=== PATIENT | male | born 1945 | race Caucasian/White ===

== ENCOUNTER 2022-06-20 18:14 | Observation (INO) | payer MEDICARE, SELFPAY ==
[2022-06-20] VITALS (76 sets, daily range): BP systolic 69–119; BP diastolic 49–73; PULSE 42–164; RESP 8–26; TEMP 36.1–36.3; O2SAT 94–100; BMI 26.3
--- NOTE | 2022-06-20 18:31 | ECG_ITS ---
Measurements Intervals [place] Rate: 167 P: [place]: 0 QRS: -17 QRSD: 82 T: 42 QT: 271 QTc: 452 Interpretive Statements SUPRAVENTRICULAR TACHYCARDIA INFERIOR MYOCARDIAL INFARCTION , PROBABLY OLD [40+ ms Q WAVE AND/OR ST/T ABNORMALITY IN II/aVF] ABNORMAL ECG Electronically Signed On 06-21-2022 10:01:23 CDT by Wisam Mahajan M.D.
--- NOTE | 2022-06-20 18:31 | ECG_ITS ---
Measurements Intervals [place] Rate: 78 P: 67 [place]: 188 QRS: -7 QRSD: 96 T: 30 QT: 380 QTc: 435 Interpretive Statements SINUS RHYTHM WITH OCCASIONAL SUPRAVENTRICULAR PREMATURE COMPLEXES CANNOT RULE OUT INFERIOR INFARCTION, AGE UNDETERMINED ABNORMAL ECG Electronically Signed On 06-21-2022 10:02:15 CDT by Wisam Mahajan M.D.
--- NOTE | 2022-06-20 18:38 | ED.GENADULT ---
HPI - General Adult General Chief complaint: Arrhythmia/Palpitations Stated complaint: palpations, dizziness Time Seen by Provider: 06/20/22 18:22 History of Present Illness HPI narrative: 76-year-old male with history of paroxysmal atrial fibrillation presents to the emergency department for evaluation of generalized weakness and cardiac arrhythmias that have been going on for today. Upon arrival to the emergency department patient was found to be in SVT and then had a prolonged sinus pause. In the room patient had a heart rate of 168 was able to cough and Valsalva himself back into normal sinus rhythm when patient goes back into normal sinus rhythm he is in a heart rate of 60 to 70s. Patient denies any complaints at this time. Patient does take amlodipine, metoprolol for his A. fib. states that has been approximately 5 years since he has had any cardiac issues. Patient states he has never had a heart attack and has no prior history of congestive heart failure. Patient states he has had decreased p.o. intake today. Patient follows up with Dr. Kapoor at [facility] Data Allergies Allergy/AdvReac Type Severity Reaction Status Date / Time No Known Allergies Allergy Unknown Unverified 03/02/17 11:52 Review of Systems Review of Systems: CONSTITUTIONAL: Denies fever, chills, or sweats. EYES: Denies visual changes, redness, or discharge. ENT: Denies rhinorrhea, congestion, sore throat, or otalgia. CARDIOVASCULAR: See HPI RESPIRATORY: Denies cough or dyspnea. GASTROINTESTINAL: Denies abdominal pain, nausea, vomiting, or diarrhea. GENITOURINARY: Denies dysuria or hematuria. SKIN: Denies rash or itching. MUSCULOSKELETAL: Denies back pain, joint pain, or myalgia. NEUROLOGIC: Denies headache, numbness, or weakness. PSYCHIATRIC: Denies anxiety or depression. Exam Narrative: APPEARANCE: Well appearing, no pain, no distress, well-nourished. HEAD: normocephalic, atraumatic. EYES: PERRLA/EOMI, conjunctivae clear. NOSE: Normal no drainage EARS:TMS clear with good light reflex. THROAT: Pharynx clear, no exudate. NECK: Supple. No adenopathy, no masses. RESPIRATORY: Airway patent, respirations nonlabored. Clear to auscultation bilaterally, no rales, rhonchi, wheezing. CARDIOVASCULAR: Intermittent SVT ABDOMINAL: Soft, nontender, nondistended, normal bowel sounds MUSCULOSKELETAL: Moves all extremities. Strength/ROM intact, No edema, No calf tenderness. NEURO: Alert. Cranial nerves II through XII intact. Grossly intact SKIN: Warm, dry. Normal Color PSYCHIATRIC: Normal affect/mood. Course Course Emergency Course: Patient was having intermittent SVT that he was able to cough and Valsalva himself on. Patient was mildly hypotensive. Patient's SVT did improve with rehydration. Case was discussed with cardiology and they advised giving him his p.o. metoprolol dose. Patient took his metoprolol in the morning so additional p.o. metoprolol was not given. Case was discussed with the hospitalist and patient was accepted for admission. Vital Signs Vital signs: Vital Signs Temperature 97.0 F L 06/20/22 18:20 Pulse Rate 164 H 06/20/22 18:20 Respiratory Rate 18 06/20/22 18:20 Blood Pressure 96/72 L 06/20/22 18:20 Pulse Oximetry 95 06/20/22 18:20 Oxygen Delivery Room Air 06/20/22 18:20 Temperature 97.0 F L 06/20/22 18:20 Pulse Rate 51 L 06/20/22 22:26 Respiratory Rate 13 06/20/22 22:26 Blood Pressure 99/64 L 06/20/22 22:26 Pulse Oximetry 100 06/20/22 22:26 Oxygen Delivery Room Air 06/20/22 18:20 Medical Decision Making Vital Signs Vital Signs: Vital Signs Temperature 97.0 F L 06/20/22 18:20 Pulse Rate 164 H 06/20/22 18:20 Respiratory Rate 18 06/20/22 18:20 Blood Pressure 96/72 L 06/20/22 18:20 Pulse Oximetry 95 06/20/22 18:20 Oxygen Delivery Room Air 06/20/22 18:20 Temperature 97.0 F L 06/20/22 18:20 Pulse Rate 51 L 06/20/22 22:26 Respiratory Rate 13 06/20/22 22:
[2022-06-20] MEDS: SODIUM CHLORIDE 0.9% IV 1,000 ML 999 ML ×2 (18:40→19:09)
[2022-06-20 18:56] LABS: Basophils Absolute Auto 0.1 K/mm3 (0.0-0.1); Basophils Percent Auto 0.9 % (0.2-1.2); Eosinophils Absolute Auto 0.3 K/mm3 (0-0.3); Hematocrit 52.7 % (42.0-52.0); Hemoglobin 17.8 g/dL (14.0-18.0); Immature Granulocyte Absolute 0.02 K/mm3 (0.00-0.031); Immature Granulocyte Percent A 0.2 % (0-0.5); Lymphocytes Absolute Auto 2.15 K/mm3 (0.9-3.2); Lymphocytes Percent Auto 24.2 % (18.3-44.2); Mean Corpuscular HGB Conc 33.8 g/dl (32-36); Mean Corpuscular Hemoglobin 32.3 pg (26-34); Mean Corpuscular Volume 95.6 fl (80-100); Mean Platelet Volume 11.7 fl (7.4-10.4); Monocytes Absolute Auto 0.9 K/mm3 (0.1-0.6); Monocytes Percent Auto 10.5 % (2.6-8.5); Neutrophils Absolute Auto 5.4 K/mm3 (1.3-6.7); Neutrophils Percent Auto 61.2 % (45.5-73.1); Platelet Count Result 205 k/mm3 (150-375); Red Blood Count 5.51 M/mm3 (4.6-6.20); Red Cell Distribution Width 12.7 % (11.5-14.5); White Blood Count 8.9 K/mm3 (4.5-10.0)
[2022-06-20 19:09] LABS: Alanine Aminotransferase 14 U/L (6-50); Albumin Level 3.5 g/dL (3.5-5.1); Alkaline Phosphatase 61 U/L (38-126); Anion Gap 10 mmol/L (8-16); Aspartate Amino Transferase 17 U/L (17-59); Bilirubin,Total 0.5 mg/dL (0.2-1.3); Blood Urea Nitrogen 17 mg/dL (9-20); Carbon Dioxide 23 mmol/L (22-30); Chloride 106 mmol/L (98-107); Estimated CRCL calculation 60 ml/min; Estimated Glomerular Filt Rate > 60; Glucose 174 mg/dL (65-110); Magnesium 1.8 mg/dL (1.6-2.3); Potassium 3.4 mmol/L (3.4-5.0); Sodium 139 mmol/L (137-145)
--- NOTE | 2022-06-20 19:50 | PM.IMHP ---
H&P: HPI History of Present Illness Date/Time: 06/20/22 19:50 Chief Complaint: Lightheadedness Narrative: This is a 76-year-old male with past medical history significant for atrial fibrillation, ischemic cardiomyopathy. Patient presents to the emergency room after having an episode of lightheadedness while sitting at home patient was brought to the emergency room he was found to have a heart rate in the 160's which was determined to be AFib with RVR patient came out of bed spontaneously, It was noted that with Valsalva maneuver. His heart rate has been in the 50s after this episode. Patient has been in his usual state of health up until this point he follows up with a clinical business manager at [facility]. has had cardioversion in the past and according to he has been well controlled. Patient denies any fevers, rigors, chills, nausea, vomiting, abdominal pain, chest pain, PND, orthopnea, syncope, leg swelling, ankle swelling. patient is been admitted for further evaluation management and treatment. Preliminary workup has been essentially nonrevealing for the most part. Review of Systems Review of Systems: Lightheadedness Constitutional: Constitutional: Denies chills, Denies excessive sweating, Denies fever(s), Denies malaise, Denies night sweats, Denies poor appetite, Denies weakness and Denies weight loss Eyes: Eyes: Denies change in vision ENT: Denies dysphagia, Denies vertigo, Denies dizziness and Denies odynophagia Cardiovascular: Cardiovascular: Denies chest pain, Denies syncope, Denies pedal edema, Denies irregular heart rhythm, Reports lightheadedness, Denies radiating jaw, neck or arm pain, Denies palpitations and Denies dyspnea on exertion Respiratory: Respiratory: Denies chest congestion, Denies cough, Denies excessive phlegm production, Denies pain on inspiration, Denies dyspnea and Denies dyspnea on exertion Gastrointestinal: Gastrointestinal: Denies abdominal pain, Denies dyspepsia, Denies heartburn, Denies nausea and Denies vomiting Genitourinary: Genitourinary: Denies dysuria Musculoskeletal: Musculoskeletal: Denies arthralgias and Denies joint swelling Integumentary/Breasts: Skin/Breast: Denies rash Neurologic: Denies vertigo, Denies dizziness, Denies focal weakness and Denies Sensory deficit (Neuro) Psychiatric: Psychiatric: Reports no additional psychiatric complaints and Reports as per HPI Endocrine: Endocrine: Denies cold intolerance, Denies flushing, Denies heat intolerance, Denies polyphagia, Denies polydipsia and Denies palpitations Hematologic/Lymphatic: Hematologic/Lymphatic: Reports no additional hematologic/lymphatic complaints and Reports as per HPI [facility] Family History Family History Sibling Deaf Mother Hypothyroidism Sibling Hypothyroidism Father S/P CABG (coronary artery bypass graft) Father CAD (coronary artery disease) Social History Social History Smoking packs per day: 0.5 Smoking cigarettes per day: 10.0 Years smoked: 8 Smoking pack-years: 4.00 Smoking status: Former smoker Tobacco type: cigarettes Second hand tobacco smoke exposure: No Alcohol intake: former Substance use: never Substance use type: does not use Spiritual care concerns: No Meds Home Medications and Allergies Home Medications Medication Instructions Recorded Confirmed Type apixaban 5 mg tablet (Eliquis) 5 mg PO BID 06/20/22 06/21/22 History aspirin 81 mg tablet,delayed 81 mg PO DAILY 06/20/22 06/21/22 History release (Adult Low Dose Aspirin) furosemide 20 mg tablet 20 mg PO BID 06/20/22 06/21/22 History metoprolol succinate 25 mg 12.5 mg PO DAILY 06/20/22 06/21/22 History tablet,extended release 24 hr sacubitril 24 mg-valsartan 26 mg 1 tablet PO BID 06/20/22 06/21/22 History tablet (Entresto) meloxicam 15 mg tablet 7.5 mg PO BID 06/21/22 06/21/22 History multivit,Ca,min-iron 8 mg-folic 1 table
[2022-06-20] MEDS: SODIUM CHLORIDE 0.9% IV 1,000 ML 250 ML IV CONT (19:58)
[2022-06-20 21:17] LABS: SARS-CoV-2 RNA PCR Negative
--- NOTE | 2022-06-20 23:28 | ADMGEN ---
This patient, Noé Duke, was admitted to IMU Room 211-01 on 06/20/22 at 2321. Patient/family oriented to hospital policies and general routines including ID bracelet, bed and alarms, visiting hours, pain management, procedures, bathroom and other care routines, personal items, smoking policy, room service/diet, and visiting hours. Information on how to activate the Rapid Response Team has been discussed. Patient/Family are encouraged to report perceived risks to care and to ask questions if they do not understand what they are told or what they should do.
[2022-06-21] VITALS (9 sets, daily range): BP systolic 109–117; BP diastolic 40–64; PULSE 40–54; RESP 16–20; TEMP 36.6–36.7; O2SAT 96–100
--- NOTE | 2022-06-21 08:28 | PM.IMPN ---
Progress Note: A&P Assessment and Plan (1) Paroxysmal SVT (supraventricular tachycardia): Code(s): I47.1 - Supraventricular tachycardia Status: Acute Assessment and Plan: admit to telemetry unit restarted medications patient has on cardiology is at [facility] continue to monitor Plan # supraventricular tachycardia resolved with Valsalva maneuver. Started metoprolol oral. Cardiology consulted. Currently bradycardic. Continue to monitor on telemetry. EKG with no ischemic changes. He cysts normal. Mildly hypokalemic. Magnesium is okay. No signs of infection. # atrial fibrillation on metoprolol at home along with apixaban follows with Dr. Ramirez at [place] # history of cardioversion for atrial fibrillation in the past # ischemic cardiomyopathy well compensated on Entresto and beta-sharron and aspirin # DVT prophylaxis on apixaban # code status full code Subjective Date/time seen: 06/21/22 08:28 Interval history: HPI:This is a 76-year-old male with past medical history significant for atrial fibrillation, ischemic cardiomyopathy.? Patient presents to the emergency room after having an episode of lightheadedness while sitting at home patient was brought to the emergency room he was found to have a heart rate in the 160's? which was determined to be AFib with RVR patient came out of bed spontaneously, ? It was noted that with Valsalva maneuver.? His heart? rate has been in the 50s after this episode.? Patient has been in his usual state of health up until this point he follows up with a barrel builder at [facility]. has had cardioversion in the past and according to he has been well controlled.? Patient denies any fevers, rigors, chills, nausea, vomiting, abdominal pain, chest pain, PND, orthopnea, syncope, leg swelling, ankle swelling. patient is been admitted for further evaluation management and treatment.? Preliminary workup has been essentially nonrevealing for the most part. 06/21/2022 presented with lightheadedness with AFib with RVR. Resolved with Valsalva maneuver in the ER. History of cardioversion in the past. EKG last evening with sinus rhythm. Admitted and monitored telemetry currently bradycardic. Review of Systems Review of Systems: All systems reviewed & are unremarkable except as noted in HPI and below Exam Narrative: APPEARANCE: Well appearing, no pain, no distress, well-nourished. HEAD: normocephalic, atraumatic. EYES: PERRLA/EOMI, conjunctivae clear. NOSE: Normal no drainage EARS:TMS clear with good light reflex. THROAT: Pharynx clear, no exudate. NECK: Supple. No adenopathy, no masses. RESPIRATORY: Airway patent, respirations nonlabored. Clear to auscultation bilaterally, no rales, rhonchi, wheezing. CARDIOVASCULAR: Intermittent SVT ABDOMINAL: Soft, nontender, nondistended, normal bowel sounds MUSCULOSKELETAL: Moves all extremities. Strength/ROM intact, No edema, No calf tenderness. NEURO: Alert. Cranial nerves II through XII intact.? Grossly intact SKIN: Warm, dry. Normal Color PSYCHIATRIC: Normal affect/mood. Objective Data Vital Signs Vital Signs: Vital Signs - 24 hr 06/20/22 18:20 06/20/22 20:40 06/20/22 18:51 Temperature 97.0 F L Pulse Rate 164 H 51 L 74 Respiratory Rate 18 16 Blood Pressure 96/72 L 99/63 L Pulse Oximetry 95 99 Oxygen Delivery Room Air 06/20/22 18:56 06/20/22 19:00 06/20/22 19:01 Temperature Pulse Rate 85 76 75 Respiratory Rate 13 16 16 Blood Pressure 95/58 L 95/59 L Pulse Oximetry 100 99 Oxygen Delivery 06/20/22 19:06 06/20/22 19:11 06/20/22 19:15 Temperature Pulse Rate 75 65 75 Respiratory Rate 14 14 14 Blood Pressure 95/56 L 102/64 Pulse Oximetry 100 99 98 Oxygen Delivery 06/20/22 19:16 06/20/22 19:21 06/20/22 19:23 Temperature Pulse Rate 74 143 H 82 Respiratory Rate 12 18 Blood Pressure 93/55 L 69/49 L 87/52 L Pulse Oximetry 99 98 98 Oxygen Delivery 06/20/22
[2022-06-21 09:31] LABS: Appearance Urine Slightly Cloudy (Clear); Bilirubin Urine 1+ (Negative); Blood Urine Negative (Negative); Color Urine Yellow (Yellow); Glucose Urine UA Negative (Negative); Ketones Urine Trace mg/dL (Negative); Leukocyte Esterase Ur Negative LEU/UL (Negative); Nitrate Urine Negative (Negative); Protein Urine Negative (Negative); Specific Grav Ur >= 1.030 (1.001-1.035); Urobilinogen Urine 0.2 mg/dL (<2.0); pH Urine 5.5 (5.0-9.0)
[2022-06-21] MEDS: SACUBITRIL/VALSARTAN 24-26 MG TABLET 1 TAB PO (09:37)
[2022-06-21] MEDS: APIXABAN 5 MG TABLET PO (09:37)
[2022-06-21] MEDS: ASPIRIN 81 MG ENTERIC TABLET PO (09:38)
[2022-06-21 09:52] LABS: Mucus Urine Heavy /lpf; RBC Urine 0-2 /hpf (0-2); Squamous Epithelial Cell Urine Rare /hpf (Few); WBC Urine 0-3 /hpf
[2022-06-21 09:54] LABS: Add Urine Microscopic? YES
--- NOTE | 2022-06-21 10:53 | PM.CNCAR ---
Assessment and Plan Assessment and plan (1) Paroxysmal SVT (supraventricular tachycardia): Code(s): I47.1 - Supraventricular tachycardia Status: Acute Assessment and Plan: Converted with vagal maneuvers. He remains in sinus rhythm at this point. His potassium is a little low and will replace with 40 mEq p.o. of potassium chloride. Otherwise continue his low-dose metoprolol and follow-up with Dr. Ramirez as an outpatient. He already has an appointment on July 04. Abortive procedures are discussed including coughing and vagal maneuvers (2) Paroxysmal atrial fibrillation: Code(s): I48.0 - Paroxysmal atrial fibrillation Status: Acute Assessment and Plan: Generally in sinus rhythm at this point. He does have some bradycardia. He has been told that if his heart rate is less than 50 to hold metoprolol. Continue anticoagulation (3) Chronic anticoagulation: Code(s): Z79.01 - detention (current) use of anticoagulants Status: Acute Assessment and Plan: No bleeding problem (4) Hypokalemia: Code(s): E87.6 - Hypokalemia Status: Acute Assessment and Plan: Will replace with KCl 40 mEq p.o. x1 (5) Cardiomyopathy: Code(s): I42.9 - Cardiomyopathy, unspecified Status: Acute Assessment and Plan: Continue Entresto/metoprolol. History of Present Illness History of Present Illness Consult date/time: 06/21/22 10:53 Requesting physician: Cachorro Cast MD Reason For Visit: SVT Narrative: Reason for consultation: SVT Date of service 06/21/2022 Requesting provider: Dr. Cast History patient is a 76-year-old male who has a history of cardiomyopathy, atrial fibrillation. He follows with Dr. Ramirez through [facility]. He has a history of atrial fibrillation dating back a couple of years. He was formally on metoprolol and amiodarone but was taken off amiodarone quite some time ago. He came to hospital yesterday because he felt his heart beating fast. He states that started about noon yesterday. He also was a little bit lightheaded at the same time. He came to the ER was found to be in SVT with rapid ventricular response. With vagal maneuvers including coughing and Valsalva his rhythm normalized. There was some sinus pauses in a process of conversion. He was admitted overnight for observation purposes and at this point feels fine. He be sides the lightheadedness at the time of his tachycardia he otherwise has been feeling fine and denies any chest pain, shortness of breath, syncope, presyncope, paroxysmal nocturnal dyspnea, orthopnea, edema. Review of Systems Review of Systems: All systems reviewed & are unremarkable except as noted in HPI and below Constitutional: Constitutional: Denies body ache(s) Eyes: Eyes: Denies blurry vision ENT: Reports Normal hearing present Cardiovascular: Cardiovascular: Denies chest pain, Denies diaphoresis, Denies pedal edema and Reports palpitations Respiratory: Respiratory: Denies chest congestion Gastrointestinal: Gastrointestinal: Denies abdominal pain Genitourinary: Genitourinary: Denies hematuria and Denies dysuria Musculoskeletal: Musculoskeletal: Denies back pain and Denies myalgias Integumentary/Breasts: Skin/Breast: Denies dry skin Neurologic: Denies headache(s) Psychiatric: Psychiatric: Denies confusion Endocrine: Endocrine: Denies excessive sweating Hematologic/Lymphatic: Hematologic/Lymphatic: Denies easy bleeding Allergic/Immunologic: Allergic/Immunologic: Denies GI upset with certain foods PMFSH Family History Family History Sibling Deaf Mother Hypothyroidism Sibling Hypothyroidism Father S/P CABG (coronary artery bypass graft) Father CAD (coronary artery disease) Social History Social History Smoking packs per day: 0.5 Smoking cigarettes per day: 10.0
[2022-06-21] MEDS: POTASSIUM CHLORIDE 20 MEQ TABLET 40 MEQ PO (11:48)
--- NOTE | 2022-06-21 12:42 | PM.DS ---
DS: Admitting Diagnosis Discharge Date 06/21/2022 Admitting Diagnosis SVT DS: Discharge Diagnosis Discharge Diagnosis (1) Paroxysmal SVT (supraventricular tachycardia): Code(s): I47.1 - Supraventricular tachycardia Status: Acute Plan DS: Summary Hospital Course Reason for hospitalization: This is a 76-year-old male with past medical history significant for atrial fibrillation, ischemic cardiomyopathy.? Patient presents to the emergency room after having an episode of lightheadedness while sitting at home patient was brought to the emergency room he was found to have a heart rate in the 160's? which was determined to be AFib with RVR patient came out of bed spontaneously, ? It was noted that with Valsalva maneuver.? His heart? rate has been in the 50s after this episode.? Patient has been in his usual state of health up until this point he follows up with a entrepreneurial finance professor at [facility]. has had cardioversion in the past and according to he has been well controlled.? Patient denies any fevers, rigors, chills, nausea, vomiting, abdominal pain, chest pain, PND, orthopnea, syncope, leg swelling, ankle swelling. patient is been admitted for further evaluation management and treatment.? Preliminary workup has been essentially nonrevealing for the most part. Hospital Course: # supraventricular tachycardia resolved with Valsalva maneuver. he was admitted for observation. Remains in sinus rhythm since admission though bradycardic. He is on metoprolol oral chronically at home. He follows up with Dr. James estrada [facility] was cardiologists. He was evaluated by entrepreneurial finance professor in the hospital. His EKG did show any ischemic changes. Troponins were negative. Mildly hypokalemic magnesium was okay. Signs of infection. He was okay per Cardiology to go home. # atrial fibrillation on metoprolol at home along with apixaban follows with Dr. Ramirez at [place] # history of cardioversion for atrial fibrillation in the past # ischemic cardiomyopathy well compensated on Entresto and beta-sharron and aspirin # DVT prophylaxis on apixaban # code status full code Time Spent with Patient Time attestation: Total time spent providing and/or coordinating discharge services: 40 minutes Exam Narrative: APPEARANCE: Well appearing, no pain, no distress, well-nourished. HEAD: normocephalic, atraumatic. EYES: PERRLA/EOMI, conjunctivae clear. NOSE: Normal no drainage NECK: Supple. No adenopathy, no masses. RESPIRATORY: Airway patent, respirations nonlabored. Clear to auscultation bilaterally, no rales, rhonchi, wheezing. CARDIOVASCULAR: sinus bradycardic, S1-S2 heard ABDOMINAL: Soft, nontender, nondistended, normal bowel sounds MUSCULOSKELETAL: Moves all extremities. Strength/ROM intact, No edema, No calf tenderness. NEURO: Alert. Cranial nerves II through XII intact.? Grossly intact SKIN: Warm, dry. Normal Color PSYCHIATRIC: Normal affect/mood. DS: Data Data Completed and Pending Labs on day of discharge: Labs from last 24 hours 06/21/22 06/20/22 06/20/22 09:22 20:37 18:44 WBC RBC Hgb Hct MCV MCH MCHC RDW Plt Count MPV Immature Gran % (Auto) Neut % (Auto) Lymph % (Auto) [place] % (Auto) Eos % (Auto) Baso % (Auto) Lymph # (Auto) [place] # (Auto) Eos # (Auto) Baso # (Auto) Abs Immat Gran (auto) Absolute Neuts (auto) Absolute Nucleated RBC Nucleated RBC % Sodium Potassium Chloride Carbon Dioxide Anion Gap BUN Creatinine Estim Creat Clear Calc Estimated GFR Glucose Calcium Magnesium Total Bilirubin AST ALT Alkaline Phosphatase Total Protein Albumin TSH (Reflex) 3.290 Urine Color Yellow Urine Appearance Slightly cloudy Urine pH 5.5 Ur Specific [place] >= 1.030 Urine Protein Negative Urine Glucose (UA) Negative Urine Ketones Trace Ur Blood (Man) Negative Urine
== END 2022-06-21 14:03 | disposition home or self-care (01) ==
LOC: ANHED 20:26 → ANHIMU 22:12
PROVIDERS: Admitting Provider Internal Medicine; Emergency Provider Emergency Medicine; Visit Provider Internal Medicine
DX: I47.1 Supraventricular tachycardia (principal); I48.0 Paroxysmal atrial fibrillation; E87.6 Hypokalemia; I25.5 Ischemic cardiomyopathy; I95.9 Hypotension, unspecified; R94.31 Abnormal electrocardiogram [ECG] [EKG]; Z82.49 Family history of ischemic heart disease and other diseases of the circulatory system; Z20.822 Contact with and (suspected) exposure to COVID-19; Z87.891 Personal history of nicotine dependence; Z79.82 Long term (current) use of aspirin; Z79.01 Long term (current) use of anticoagulants; Z79.899 Other long term (current) drug therapy
CPT/HCPCS: 36415; 80053; 81001; 83735; 84443; 85025; 93005; 96360; 96361; 99285; A9270; C9803; G0378; J7030; U0003; U0005

== ENCOUNTER 2022-07-08 13:10 | Observation (INO) | payer MEDICARE, SELFPAY ==
[2022-07-08] VITALS (63 sets, daily range): BP systolic 80–125; BP diastolic 56–69; PULSE 45–178; RESP 6–31; TEMP 36.8; O2SAT 95–100
--- NOTE | ~2022-07-08 | XR_ITS ---
EXAMINATION: XR chest 1V portable Exam Date/Time: 07/08/2022 14:00 CDT HISTORY: palpitations. HX AFIB Comparison: None available. RESULT: Lines, tubes, and devices: None. Lungs and pleura: Right hemidiaphragm elevation. Bronchovascular crowding. Minimal bibasilar atelect asis. Cardiomediastinal silhouette: Stable. Other: No acute osseous or upper abdominal finding. IMPRESSION: No acute cardiopulmonary process. Reviewed, dictated and finalized at location K.
--- NOTE | 2022-07-08 13:23 | ECG_ITS ---
Measurements Intervals [place] Rate: 174 P: [place]: 0 QRS: 26 QRSD: 80 T: 69 QT: 253 QTc: 431 Interpretive Statements SUPRAVENTRICULAR TACHYCARDIA CANNOT RULE OUT SEPTAL INFARCT, AGE INDETERMINATE BORDERLINE ST-T WAVE ABNORMALITY- INF/LAT LEADS- PROBABLY RATE RELATED ABNORMAL ECG COMPARED TO ECG 06/20/2022 18:35:58 SUPRAVENTRICULAR TACHYCARDIA NOW PRESENT Electronically Signed On 07-08-2022 13:27:58 CDT by Dagoberto Rai D.O.
[2022-07-08 13:30] LABS: Basophils Absolute Auto 0.1 K/mm3 (0.0-0.1); Basophils Percent Auto 1.1 % (0.2-1.2); Eosinophils Absolute Auto 0.4 K/mm3 (0-0.3); Eosinophils Percent Auto 4.2 % (0-4.4); Hematocrit 50.2 % (42.0-52.0); Hemoglobin 17.1 g/dL (14.0-18.0); Immature Granulocyte Absolute 0.01 K/mm3 (0.00-0.031); Immature Granulocyte Percent A 0.1 % (0-0.5); Lymphocytes Absolute Auto 1.74 K/mm3 (0.9-3.2); Lymphocytes Percent Auto 20.3 % (18.3-44.2); Mean Corpuscular HGB Conc 34.1 g/dl (32-36); Mean Corpuscular Hemoglobin 32.1 pg (26-34); Mean Corpuscular Volume 94.4 fl (80-100); Mean Platelet Volume 11.3 fl (7.4-10.4); Monocytes Absolute Auto 0.8 K/mm3 (0.1-0.6); Monocytes Percent Auto 9.7 % (2.6-8.5); Neutrophils Absolute Auto 5.5 K/mm3 (1.3-6.7); Neutrophils Percent Auto 64.6 % (45.5-73.1); Platelet Count Result 201 k/mm3 (150-375); Red Blood Count 5.32 M/mm3 (4.6-6.20); Red Cell Distribution Width 13.2 % (11.5-14.5); White Blood Count 8.6 K/mm3 (4.5-10.0)
--- NOTE | 2022-07-08 13:36 | PC.NURSE ---
Pt in and out of SVT and converting to sinus rhythm without medications.
[2022-07-08 13:41] LABS: Alanine Aminotransferase 20 U/L (6-50); Albumin Level 4.2 g/dL (3.5-5.1); Alkaline Phosphatase 87 U/L (38-126); Anion Gap 12 mmol/L (8-16); Aspartate Amino Transferase 26 U/L (17-59); Bilirubin,Total 0.7 mg/dL (0.2-1.3); Blood Urea Nitrogen 15 mg/dL (9-20); Calcium 9.5 mg/dL (8.4-10.2); Carbon Dioxide 23 mmol/L (22-30); Chloride 103 mmol/L (98-107); Estimated CRCL calculation 60 ml/min; Estimated Glomerular Filt Rate > 60; Glucose 152 mg/dL (65-110); Lipase 162 U/L (23-300); Potassium 3.6 mmol/L (3.4-5.0); Sodium 138 mmol/L (137-145)
[2022-07-08 13:42] LABS: INR 1.1; Partial Thromboplastin Time 32.1 SECONDS (22.3-36.8); Prothrombin Time 14.1 Seconds (11.1-14.7)
--- NOTE | 2022-07-08 13:43 | ED.ARRPALP ---
HPI - Arrhythmia/Palpitations General Chief Complaint: Arrhythmia/Palpitations <Sonya Delgado MD - Last Filed: 07/08/22 21:37> Stated Complaint: irregular heart rate <Sonya Delgado MD - Last Filed: 07/08/22 21:37> Time Seen by Provider: 07/08/22 13:42 <Sonya Delgado MD - Last Filed: 07/08/22 21:37> Source: patient <Sonya Delgado MD - Last Filed: 07/08/22 21:37> Mode of arrival: ambulatory <Sonya Delgado MD - Last Filed: 07/08/22 21:37> Limitations: no limitations <Sonya Delgado MD - Last Filed: 07/08/22 21:37> History of Present Illness HPI narrative: The patient is a 76-year-old male with a history of paroxysmal SVT, chronic anticoagulation, presenting to the emergency department for evaluation recurrent palpitations. Patient with recent visit to emergency department for similar, his SVT was able to resolve with vagal maneuvers such as coughing and bearing down. Patient was admitted to telemetry and seen by cardiology who recommended hydration, continuing oral beta-blockers. Patient's director of career services is Dr. Ramirez. He denies recent medication changes. He reports with the palpitations he has some mild lightheadedness and dizziness. He denies any significant chest pain, pressure, syncopal event. Patient has been compliant with his other medications, denies any medication changes. <Sonya Delgado MD - Last Filed: 07/08/22 21:37> Related Data Home Medications: Home Medications Medication Instructions Recorded Confirmed apixaban 5 mg tablet (Eliquis) 5 mg PO BID 06/20/22 07/09/22 aspirin 81 mg tablet,delayed 81 mg PO DAILY 06/20/22 07/09/22 release (Adult Low Dose Aspirin) furosemide 20 mg tablet 20 mg PO BID 06/20/22 07/09/22 metoprolol succinate 25 mg 12.5 mg PO DAILY 06/20/22 07/09/22 tablet,extended release 24 hr sacubitril 24 mg-valsartan 26 mg 1 tablet PO BID 06/20/22 07/09/22 tablet (Entresto) meloxicam 15 mg tablet 7.5 mg PO BID 06/21/22 07/09/22 multivit,Ca,min-iron 8 mg-folic 1 tablet PO DAILY 06/21/22 07/09/22 acid 200 mcg-lycopene 600 mcg tablet (Centrum Men) <Sonya Delgado MD - Last Filed: 07/08/22 21:37> Allergies/Adverse Reactions: Allergies Allergy/AdvReac Type Severity Reaction Status Date / Time No Known Allergies Allergy Unknown Unverified 07/08/22 13:51 <Sonya Delgado MD - Last Filed: 07/08/22 21:37> Review of Systems Review of Systems: CONSTITUTIONAL: Denies fever, chills, or sweats. EYES: Denies visual changes, redness, or discharge. ENT: Denies rhinorrhea, congestion, sore throat, or otalgia. CARDIOVASCULAR: Denies chest pain, reports palpitations, denies lower extremity edema RESPIRATORY: Denies cough or dyspnea. GASTROINTESTINAL: Denies abdominal pain, nausea, vomiting, or diarrhea. GENITOURINARY: Denies dysuria or hematuria. SKIN: Denies rash or itching. MUSCULOSKELETAL: Denies back pain, joint pain, or myalgia. NEUROLOGIC: Denies headache, numbness, or weakness. Reports mild lightheadedness without dizziness. <Sonya Delgado MD - Last Filed: 07/08/22 21:37> FORMERLY [facility] Past Medical History Medical History: Medical History (Updated 07/09/22 @ 23:54 by Danitza Manning NP) Cardiomyopathy Chronic anticoagulation Hypokalemia Paroxysmal atrial fibrillation Paroxysmal SVT (supraventricular tachycardia) <Sonya Delgado MD - Last Filed: 07/08/22 21:37> Surgical History Surgical History: Surgical History (Updated 07/09/22 @ 23:47 by Danitza Manning NP) H/O cataract extraction History of appendectomy <Sonya Delgado MD - Last Filed: 07/08/22 21:37> Family History Family History: Family History Sibling Deaf Mother Hypothyroidism Sibling Hypothyroidism Father S/P CABG (coronary artery bypass graft) Father CAD (coronary artery disease) <Sonya Delgado MD - Last Filed: 07/08/22 21:37> Social
[2022-07-08] MEDS: SODIUM CHLORIDE 0.9% IV 1,000 ML 1000 ML (13:45)
[2022-07-08] MEDS: ASPIRIN 81 MG CHEWABLE TABLET 324 MG PO (13:49)
--- NOTE | 2022-07-08 13:49 | PC.NURSE ---
Pt given (3) of the aspirin ordered. Pt too (1) 81mg aspirin this morning. Dr. Delgado made aware.
[2022-07-08 13:52] LABS: Troponin I < 0.012 ng/mL (0.000-0.034)
--- NOTE | 2022-07-08 13:55 | PC.NURSE ---
Pt continues to frequently go into SVT. Pt able to convert back into sinus rhythm with vagal maneuvers. No further orders placed at this time.
[2022-07-08] MEDS: AMIODARONE 150 MG/D5W 100 ML 150 MG/100 ML BAG 600 MG IV CONT (14:53)
[2022-07-08] MEDS: AMIODARONE 360 MG/D5W 200 ML 360 MG/200 ML BAG 33.33 MG IV CONT (15:09)
[2022-07-08 15:23] LABS: Magnesium 1.9 mg/dL (1.6-2.3); Phosphorus 2.8 mg/dL (2.5-4.5)
--- NOTE | 2022-07-08 15:26 | PC.NURSE ---
Updated [facility] transfer line. Bed assignment pending negative covid. Transfer line will call back.
[2022-07-08 16:17] LABS: SARS-CoV-2 RNA PCR Negative
[2022-07-08 17:11] LABS: Troponin I 0.136 ng/mL (0.000-0.034)
--- NOTE | 2022-07-08 19:27 | PC.NURSE ---
Patient report received from JACKIE Faulkner. All questions answered and care of patient assumed.
--- NOTE | 2022-07-08 19:50 | PC.NURSE ---
Patient resting comfortably in bed with call-light in reach and family at bedside. Awaiting transfer to [place]. Patient denies complaints. Amiodarone drip continues infusing as ordered. Will continue to address needs as they arise.
[2022-07-08 19:51] LABS: Troponin I 0.274 ng/mL (0.000-0.034)
--- NOTE | 2022-07-08 20:34 | PC.NURSE ---
Patient escorted to the BR. Denies CP, dizziness, palpitations, or SOB with ambulation. Steady gait.
[2022-07-08] MEDS: AMIODARONE 360 MG/D5W 200 ML 360 MG/200 ML BAG 16.67 MG IV CONT (21:16)
[2022-07-09] VITALS (34 sets, daily range): BP systolic 98–144; BP diastolic 53–79; PULSE 42–72; RESP 10–22; TEMP 36.2–36.6; O2SAT 95–99; BMI 26.4
--- NOTE | 2022-07-09 | ECHO_ITS ---
Patient Info Name: Noé Duke Age: 76 years : 1945 Gender: Male Ht: 69 in Wt: 174 lbs BSA: 1.97 m2 HR: 72 bpm BP: 116 / 79 mmHg Heart Rhythm: Sinus Rhythm Technical Quality: Fair Exam Date: 07/09/2022 3:50 PM Exam Location: [facility] Patient Status: Emergency Admit Date: 07/08/2022 Staff Ordering Physician: Sonya Delgado MD Research Pharmacist: Violetta Sen RDCS Attending Provider: Sonya Delgado MD Referring Physician: Sandy SIMON; Exam Type: CA echo doppler color flow Study Info Indications - paroxysmal svt Complete two-dimensional, color flow and Doppler transthoracic echocardiogram is performed. Summary 1. Complete two-dimensional, color flow and Doppler transthoracic echocardiogram is performed. 2. Left ventricular chamber dimension is normal. 3. Left ventricular systolic function is normal, estimated at 60-65%. 4. There is mildly increased left ventricular wall thickness. 5. The left ventricular diastolic function is grade I diastolic dysfunction. 6. Left atrial chamber dimension is moderately enlarged. 7. There is mild aortic valve stenosis with a peak velocity of 178 cm/s, mean gradient of 7 mmHg, and aortic valve area of 1.9 cm2. 8. There is no mitral valve regurgitation. 9. There is trace tricuspid valve regurgitation. 10. No pulmonary hypertension, estimated pulmonary arterial systolic pressure is 21 mmHg. Left Ventricle Left ventricular chamber dimension is normal. Left ventricular systolic function is normal, estimated at 60-65%. There is mildly increased left ventricular wall thickness. The left ventricular diastolic function is grade I diastolic dysfunction. Right Ventricle Right ventricular chamber dimension is normal. Right ventricular systolic function is normal. Left Atria Left atrial chamber dimension is moderately enlarged. Right Atria Right atrial chamber dimension is mildly enlarged. Aortic Valve The aortic valve is trileaflet. There is mild aortic valve stenosis with a peak velocity of 178 cm/s, mean gradient of 7 mmHg, and aortic valve area of 1.9 cm2. There is no aortic valve regurgitation. There is mild aortic valve calcification. Pulmonic Valve The pulmonic valve is not well visualized. Mitral Valve The mitral valve has thickened leaflets. There is no mitral valve regurgitation. The mitral valve annulus is mildly calcified. Tricuspid Valve The tricuspid valve leaflets are normal. There is trace tricuspid valve regurgitation. No pulmonary hypertension, estimated pulmonary arterial systolic pressure is 21 mmHg. Pericardium/Pleural The pericardium appears normal. There is no pericardial effusion. Inferior Vena Cava Normal inferior vena cava with >50% collapse upon inspiration consistent with normal right atrial pressure, 5 mmHg. Aorta The aortic root size at the sinus of Valsalva is normal. The prox ascending aorta size is normal. There is mild-moderate aortic atherosclerosis. Left Ventricular Outflow Tract Name Value Normal LVOT 2D LVOT Diameter 2.0 cm LVOT Doppler LVOT Peak Gradient 4 m
--- NOTE | 2022-07-09 01:26 | PC.NURSE ---
[facility] Transfer line called for updated VS. Information provided. No ETA on bed availability.
--- NOTE | 2022-07-09 03:18 | PC.NURSE ---
Patient report given to JACKIE Zavala. All questions answered and care of patient transferred.
--- NOTE | 2022-07-09 03:52 | PC.NURSE ---
Notified Dr Rebollar of HR into 30s and 40s verbal orders to DC Amiodarone gtt received
[2022-07-09 05:51] LABS: Basophils Absolute Auto 0.1 K/mm3 (0.0-0.1); Basophils Percent Auto 0.9 % (0.2-1.2); Eosinophils Absolute Auto 0.3 K/mm3 (0-0.3); Eosinophils Percent Auto 6.1 % (0-4.4); Hemoglobin 14.8 g/dL (14.0-18.0); Immature Granulocyte Absolute 0.01 K/mm3 (0.00-0.031); Immature Granulocyte Percent A 0.2 % (0-0.5); Lymphocytes Absolute Auto 1.41 K/mm3 (0.9-3.2); Lymphocytes Percent Auto 25.5 % (18.3-44.2); Mean Corpuscular HGB Conc 33.6 g/dl (32-36); Mean Corpuscular Hemoglobin 32.3 pg (26-34); Mean Corpuscular Volume 96.1 fl (80-100); Mean Platelet Volume 10.9 fl (7.4-10.4); Monocytes Absolute Auto 0.7 K/mm3 (0.1-0.6); Neutrophils Percent Auto 54.3 % (45.5-73.1); Platelet Count Result 153 k/mm3 (150-375); Red Blood Count 4.58 M/mm3 (4.6-6.20); Red Cell Distribution Width 13.3 % (11.5-14.5); White Blood Count 5.5 K/mm3 (4.5-10.0)
[2022-07-09 06:01] LABS: Anion Gap 8 mmol/L (8-16); Blood Urea Nitrogen 14 mg/dL (9-20); Calcium 8.6 mg/dL (8.4-10.2); Carbon Dioxide 28 mmol/L (22-30); Chloride 104 mmol/L (98-107); Estimated CRCL calculation 76 ml/min; Estimated Glomerular Filt Rate > 60; Glucose 110 mg/dL (65-110); Potassium 3.9 mmol/L (3.4-5.0); Sodium 140 mmol/L (137-145)
[2022-07-09 06:21] LABS: Troponin I 0.202 ng/mL (0.000-0.034)
--- NOTE | 2022-07-09 07:10 | PC.NURSE ---
Report given to Karel MEJIA
--- NOTE | 2022-07-09 09:52 | PC.NURSE ---
Per EDP Kelli, hold any additional amiodarone at this time. Patient heart rate currently 52 on monitor.
--- NOTE | 2022-07-09 10:04 | PC.NURSE ---
Went in to update patient's home medications. Patient stated he just took all of his home medications including his Aspirin, Eliquis, Metoprolol, and Entresto. JAMES Pereira notified. Patient educated to notify RN before taking any medications. No interventions needed at this time.
--- NOTE | 2022-07-09 17:04 | PM.CNCAR ---
Assessment and Plan Assessment and plan (1) Paroxysmal SVT (supraventricular tachycardia): Code(s): I47.1 - Supraventricular tachycardia Status: Acute (2) Paroxysmal atrial fibrillation: Code(s): I48.0 - Paroxysmal atrial fibrillation Status: Acute (3) Cardiomyopathy: Code(s): I42.9 - Cardiomyopathy, unspecified Status: Acute Plan 1. Awaiting transfer for EP evaluation. 2. Continue to monitor on telemetry. 3. Keep electrolytes optimized. 4. Echocardiogram pending - will follow up on results. History of Present Illness History of Present Illness Consult date/time: 07/09/22 17:04 Requesting physician: Sonya Delgado MD Consult reason: Other (SVT) Reason For Visit: proxysmal svt Narrative: Patient is a 76-year-old male with a history of cardiomyopathy, paroxysmal atrial fibrillation, and SVT who presented with symptomatic SVT, having multiple episodes. Was here end of May for SVT as well. Primary staff development coordinator is Dr. Ramirez. Was on Amiodarone drip yesterday, however, due to bradycardia, Amiodarone drip discontinued. Plan was to transfer to [facility] for EP evaluation, however, they did not have capacity to accept transfer. Discussed with [facility] as well, but no beds available at the time. Review of Systems Constitutional: Constitutional: Denies body ache(s), Denies chills and Denies night sweats Cardiovascular: Cardiovascular: Reports as per HPI Respiratory: Respiratory: Reports as per HPI Gastrointestinal: Gastrointestinal: Denies abdominal pain, Denies nausea and Denies vomiting Neurologic: Reports system reviewed and no additional complaints, except as documented Hematologic/Lymphatic: Hematologic/Lymphatic: Denies easy bleeding and Denies easy bruising FORMERLY [facility], [facility] Past Medical History Medical History Cardiomyopathy Chronic anticoagulation Hypokalemia Paroxysmal atrial fibrillation Paroxysmal SVT (supraventricular tachycardia) Family History Family History Sibling Deaf Mother Hypothyroidism Sibling Hypothyroidism Father S/P CABG (coronary artery bypass graft) Father CAD (coronary artery disease) Social History Social History Smoking packs per day: 0.5 Smoking cigarettes per day: 10.0 Years smoked: 8 Smoking pack-years: 4.00 Smoking status: Former smoker Tobacco type: cigarettes Second hand tobacco smoke exposure: No Alcohol intake: former Substance use: never Substance use type: does not use Spiritual care concerns: No Meds Home Medications and Allergies Home Medications Medication Instructions Recorded Confirmed Type apixaban 5 mg tablet (Eliquis) 5 mg PO BID 06/20/22 06/21/22 History aspirin 81 mg tablet,delayed 81 mg PO DAILY 06/20/22 06/21/22 History release (Adult Low Dose Aspirin) furosemide 20 mg tablet 20 mg PO BID 06/20/22 06/21/22 History metoprolol succinate 25 mg 12.5 mg PO DAILY 06/20/22 06/21/22 History tablet,extended release 24 hr sacubitril 24 mg-valsartan 26 mg 1 tablet PO BID 06/20/22 06/21/22 History tablet (Entresto) meloxicam 15 mg tablet 7.5 mg PO BID 06/21/22 06/21/22 History multivit,Ca,min-iron 8 mg-folic 1 tablet PO DAILY 06/21/22 06/21/22 History acid 200 mcg-lycopene 600 mcg tablet (Centrum Men) Allergies Allergy/AdvReac Type Severity Reaction Status Date / Time No Known Allergies Allergy Unknown Unverified 07/08/22 13:51 Vital Signs Vital Signs - 24 hr 07/08/22 17:15 07/08/22 17:16 07/08/22 17:17 Temperature Pulse Rate 52 L 51 L 59 L Respiratory Rate 13 18 Blood Pressure 96/61 L Pulse Oximetry 07/08/22 17:38 07/08/22 17:53 07/08/22 18:02 Temperature Pulse Rate 50 L 52 L 57 L Respiratory Rate 14 19 19 Blood Pressure Pulse Oximetry 07/08/22 18:15 07/08/22 18:16
--- NOTE | 2022-07-09 18:10 | ADMGEN ---
This patient, Noé Duke, was admitted to IMU Room 205-02 at 1800. Patient/family oriented to hospital policies and general routines including ID bracelet, bed and alarms, visiting hours, pain management, procedures, bathroom and other care routines, personal items, smoking policy, room service/diet, and visiting hours. Information on how to activate the Rapid Response Team has been discussed. Patient/Family are encouraged to report perceived risks to care and to ask questions if they do not understand what they are told or what they should do.
--- NOTE | 2022-07-09 23:22 | PM.IMHP ---
H&P: HPI History of Present Illness Date/Time: 07/09/22 23:22 Chief Complaint: Arrhythmia Narrative: This is a 76-year-old male patient who has a history of paroxysmal SVT, chronic anticoagulation with atrial fibrillation. The patient came to the emergency room today for recurrent palpitations. The patient's heart rate is typically in the 40s and 50s. However today the patient felt palpitations today. The patient has had previous episodes and came to the emergency room and was able to use a vagal maneuvers such as coughing and bearing down to resolve the issue in the past. The patient has been on oral beta-blockers. His products mechanical design engineer is Dr. renteria. He denies any recent medication changes. He had some mild lightheadedness and dizziness. He denied any chest pain pressure or syncopal event. An echo was performed today which was read as the following 1. Complete two-dimensional, color flow and Doppler transthoracic echocardiogram is performed. ? 2. Left ventricular chamber dimension is normal. ? 3. Left ventricular systolic function is normal, estimated at 60-65%. ? 4. There is mildly increased left ventricular wall thickness. ? 5. The left ventricular diastolic function is grade I diastolic dysfunction. ? 6. Left atrial chamber dimension is moderately enlarged. ? 7. There is mild aortic valve stenosis with a peak velocity of 178 cm/s, mean gradient of 7 mmHg, and aortic valve area of 1.9 cm2. ? 8. There is no mitral valve regurgitation. ? 9. There is trace tricuspid valve regurgitation. ? 10. No pulmonary hypertension, estimated pulmonary arterial systolic pressure is 21 mmHg. Cardiology has seen the patient here and mid noted that the patient is awaiting transfer for EP evaluation. Continue on color television console monitor. Keep electrolytes optimized. Awaiting transfer to [facility] however they have no beds at this time. No anticoagulation for now. The patient is being admitted to observation status on the date of service of 07/09/2022. Review of Systems Review of Systems: See HPI All systems reviewed & are unremarkable except as noted in HPI and below Constitutional: Constitutional: Reports as per HPI and Reports no additional constitutional complaints Eyes: Eyes: Reports as per HPI and Reports no additional eye complaints ENT: Reports system reviewed and no additional complaints, except as documented and Reports Normal hearing present Cardiovascular: Cardiovascular: Reports no additional cardiovascular complaints Respiratory: Respiratory: Reports no additional respiratory complaints and Reports no additional respiratory complaints Gastrointestinal: Gastrointestinal: Reports as per HPI and Reports no additional gastrointestinal complaints Musculoskeletal: Musculoskeletal: Reports no additional musculoskeletal complaints Integumentary/Breasts: Skin/Breast: Reports system reviewed and no additional complaints, except as docu and Reports as per HPI Neurologic: Reports system reviewed and no additional complaints, except as documented, Reports as per HPI and Reports Normal hearing present Psychiatric: Psychiatric: Reports no additional psychiatric complaints and Reports as per HPI Endocrine: Endocrine: Reports no additional endocrine complaints Hematologic/Lymphatic: Hematologic/Lymphatic: Reports no additional hematologic/lymphatic complaints Allergic/Immunologic: Allergic/Immunologic: Reports no additional allergic/immunologic complaints [facility] Past Medical History Medical History (Updated 07/09/22 @ 23:54 by Danitza Manning NP) Cardiomyopathy Chronic anticoagulation Hypokalemia Paroxysmal atrial fibrillation Paroxysmal SVT (supraventricular tachycardia) Surgical History Surgical History (Updated 07/09/22 @ 23:47 by Danitza Manning NP) H/O cataract extraction History of appendectomy Family History Family History Sibling Deaf Mother Hypothyroidism Sibling Hypothyro
[2022-07-10] VITALS (15 sets, daily range): BP systolic 125–153; BP diastolic 60–86; PULSE 39–61; RESP 15–18; TEMP 36–36.9; O2SAT 96–98
[2022-07-10 05:02] LABS: Basophils Absolute Auto 0.1 K/mm3 (0.0-0.1); Basophils Percent Auto 1.3 % (0.2-1.2); Eosinophils Absolute Auto 0.3 K/mm3 (0-0.3); Eosinophils Percent Auto 6.9 % (0-4.4); Hemoglobin 14.3 g/dL (14.0-18.0); Immature Granulocyte Absolute 0.01 K/mm3 (0.00-0.031); Immature Granulocyte Percent A 0.2 % (0-0.5); Immature Platelet Fraction Pct 9.8 % (0.9-11.2); Lymphocytes Absolute Auto 1.32 K/mm3 (0.9-3.2); Lymphocytes Percent Auto 29.2 % (18.3-44.2); Mean Corpuscular HGB Conc 33.3 g/dl (32-36); Mean Corpuscular Hemoglobin 31.6 pg (26-34); Mean Corpuscular Volume 95.1 fl (80-100); Mean Platelet Volume 11.4 fl (7.4-10.4); Monocytes Absolute Auto 0.7 K/mm3 (0.1-0.6); Monocytes Percent Auto 14.6 % (2.6-8.5); Neutrophils Absolute Auto 2.2 K/mm3 (1.3-6.7); Neutrophils Percent Auto 47.8 % (45.5-73.1); Platelet Count Result 146 k/mm3 (150-375); Red Blood Count 4.52 M/mm3 (4.6-6.20); Red Cell Distribution Width 12.9 % (11.5-14.5); White Blood Count 4.5 K/mm3 (4.5-10.0)
[2022-07-10 05:18] LABS: Lactic Acid Reflex 0.7 mmol/L (0.7-2.0)
[2022-07-10 05:20] LABS: Alanine Aminotransferase 14 U/L (6-50); Albumin Level 3.3 g/dL (3.5-5.1); Alkaline Phosphatase 44 U/L (38-126); Anion Gap 9 mmol/L (8-16); Aspartate Amino Transferase 18 U/L (17-59); Bilirubin,Total 0.7 mg/dL (0.2-1.3); Blood Urea Nitrogen 14 mg/dL (9-20); CRP < 0.5 mg/dL (<1.0); Calcium 8.2 mg/dL (8.4-10.2); Carbon Dioxide 26 mmol/L (22-30); Chloride 105 mmol/L (98-107); Estimated CRCL calculation 76 ml/min; Estimated Glomerular Filt Rate > 60; Glucose 105 mg/dL (65-110); Potassium 3.4 mmol/L (3.4-5.0); Sodium 140 mmol/L (137-145)
[2022-07-10] MEDS: ASPIRIN 81 MG ENTERIC TABLET PO (08:41)
[2022-07-10] MEDS: THERAPEUTIC MULTIVITAMINS/MINERALS TAB (*BKC) 1 TABLET PO (08:43)
[2022-07-10] MEDS: MELOXICAM 7.5 MG TABLET PO ×2 (08:43→18:00)
[2022-07-10] MEDS: APIXABAN 5 MG TABLET PO ×2 (08:43→18:00)
[2022-07-10] MEDS: FUROSEMIDE 20 MG TABLET PO ×2 (08:43→18:00)
[2022-07-10] MEDS: SACUBITRIL/VALSARTAN 24-26 MG TABLET 1 TAB PO ×2 (10:58→18:00)
[2022-07-10] MEDS: METOPROLOL SUCCINATE EXT REL 12.5 MG TABCR PO (10:58)
[2022-07-10] MEDS: POTASSIUM CHLORIDE 20 MEQ TABLET 40 MEQ PO (10:59)
--- NOTE | 2022-07-10 14:48 | PM.PNCARD ---
Progress Note: A&P Assessment and Plan (1) Paroxysmal SVT (supraventricular tachycardia): Code(s): I47.1 - Supraventricular tachycardia Status: Acute (2) Paroxysmal atrial fibrillation: Code(s): I48.0 - Paroxysmal atrial fibrillation Status: Acute (3) Cardiomyopathy: Code(s): I42.9 - Cardiomyopathy, unspecified Status: Acute Plan Awaiting transfer to [facility] Date/time seen: 07/10/22 14:48 Interval history: No acute events overnight. Remains in sinus rhythm. No arrhythmias on telemetry. Review of Systems Review of Systems: All systems reviewed & are unremarkable except as noted in HPI and below Exam Const: General: comfortable and no acute distress HENMT: Mouth: Yes moist mucous membranes Eyes: General: appearance normal, both eyes and all related structures Neck: Neck: no JVD Resp: Effort & Inspection: normal respiratory effort Auscultation: clear to auscultation bilaterally Cardio: Rate: regular rate Rhythm: regular rhythm Heart sounds: no murmurs Skin: General skin exam: normal color Neuro: Speech: normal speech Psych: Mental Status: mental status grossly normal Objective Data Vital Signs Vital Signs: Vital Signs - 24 hr 07/09/22 17:17 07/09/22 18:13 07/09/22 18:07 Temperature 36.2 C L Pulse Rate 68 70 61 Respiratory Rate 18 18 Blood Pressure 144/69 H Pulse Oximetry 95 Oxygen Delivery 07/09/22 20:00 07/09/22 20:00 07/09/22 20:00 Temperature 36.5 C Pulse Rate 59 L 52 L Respiratory Rate 15 Blood Pressure 114/69 Pulse Oximetry 97 Oxygen Delivery Room Air 07/09/22 22:00 07/10/22 00:00 07/10/22 00:00 Temperature 36.9 C Pulse Rate 44 L 51 L 44 L Respiratory Rate 16 Blood Pressure 129/61 Pulse Oximetry 98 Oxygen Delivery 07/10/22 00:00 07/10/22 02:00 07/10/22 04:00 Temperature 36.7 C Pulse Rate 52 L 39 L Respiratory Rate 15 Blood Pressure 125/60 Pulse Oximetry 96 Oxygen Delivery Room Air 07/10/22 04:00 07/10/22 04:00 07/10/22 06:00 Temperature Pulse Rate 53 L 51 L Respiratory Rate Blood Pressure Pulse Oximetry Oxygen Delivery Room Air 07/10/22 07:54 07/10/22 08:00 07/10/22 08:00 Temperature 36.3 C L Pulse Rate 52 L 46 L Respiratory Rate 18 Blood Pressure 139/60 Pulse Oximetry 97 Oxygen Delivery Room Air 07/10/22 10:00 07/10/22 10:58 07/10/22 11:52 Temperature 36.4 C Pulse Rate 56 L 61 56 L Respiratory Rate 18 Blood Pressure 153/69 H Pulse Oximetry 98 Oxygen Delivery 07/10/22 12:00 07/10/22 12:00 07/10/22 14:00 Temperature Pulse Rate 53 L 49 L Respiratory Rate Blood Pressure Pulse Oximetry Oxygen Delivery Room Air Intake/Output Intake/Output: Intake & Output 07/07/22 07/08/22 07/09/22 07/10/22 23:59 23:59 23:59 23:59 Intake Total 1300 100 960 Balance 1300 100 960 Meds/Results Medications: Active Medications Generic Name Dose Route Start Last Admin Trade Name Freq PRN Reason Stop Dose Admin Acetaminophen 650 mg 07/08/22 21:50 Acetaminophen 325 Mg Tablet PO Q4H PRN Mild Pain (1-3) or Fever Apixaban 5 mg 07/10/22 09:00 07/10/22 08:43 Apixaban 5 Mg Tablet PO 5 mg BID RAJAT Administration Aspirin 81 mg 07/10/22 09:00 07/10/22 08:41 Aspirin 81 Mg Enteric Tablet PO 81 mg DAILY RAJAT Administration Furosemide 20 mg 07/10/22 09:00 07/10/22 08:43 Furosemide 20 Mg Tablet PO 20 mg BID RAJAT Administration Meloxicam 7.5 mg 07/10/22 09:00 07/10/22 08:43 Meloxicam 7.5 Mg Tablet PO 08/09/22 08:59 7.5 mg BID RAJAT Administration Metoprolol Succinate 12.5 mg 07/10/22 09:00 07/10/22 10:58 Metoprolol Succinate Ext Rel 12.5 Mg Tabcr PO 12.5 mg DAILY RAJAT Administration Multivitamins/Calcium 1 tablet 07/10/22 09:00 07/10/22 08:43 Therapeutic Multivitamins/Minerals Tab (*Bkc) PO 1 tablet DAILY RAJAT Administ
--- NOTE | 2022-07-10 16:13 | PM.IMPN ---
Progress Note: A&P Assessment and Plan (1) Paroxysmal SVT (supraventricular tachycardia): Code(s): I47.1 - Supraventricular tachycardia Status: Acute Assessment and Plan: -the patient initially was placed on amiodarone drip. Now he is off of the amiodarone drip. -the patient is waiting for transfer to [facility] for EP studies. However no beds are available at [facility] at this time. -cardiology to see the patient while he is awaiting placement. -currently and sinus bradycardia. 07/10/2022 interval history: Patient with PAF, PSVT and cardiomyopathy and symptomatic SVT unable to maintain was on amio but develop bradycardia, seen by machining and assembly supervisor recommended patient needs EP evaluation, waiting for a bed at [facility], patient remains clinically, and has no complaints of CP, palpitation or SOB, his and daughter are present in the room. (2) Paroxysmal atrial fibrillation: Code(s): I48.0 - Paroxysmal atrial fibrillation Status: Acute Assessment and Plan: -currently in sinus bradycardia. -the patient is chronically on Eliquis. -metoprolol was continued but with parameters to hold if heart rate is less than 50. (3) Chronic anticoagulation: Code(s): Z79.01 - rn long term care (current) use of anticoagulants Status: Acute Assessment and Plan: -the patient is on Eliquis. (4) Congestive heart failure: Code(s): I50.9 - Heart failure, unspecified Status: Acute Assessment and Plan: -Entresto was restarted with parameters. -diastolic grade 1, see echo above -Lasix resumed as well. Plan Home medications were resumed while awaiting transfer. Subjective Date/time seen: 07/10/22 16:13 HPI-Narrative: This is a 76-year-old male patient who has a history of paroxysmal SVT, chronic anticoagulation with atrial fibrillation.? The patient came to the emergency room today for recurrent palpitations.? The patient's heart rate is typically in the 40s and 50s.? However today the patient felt palpitations today.? The patient has had previous episodes and came to the emergency room and was able to use a vagal maneuvers such as coughing and bearing down to resolve the issue in the past.? The patient has been on oral beta-blockers.? His machining and assembly supervisor is Dr. renteria.? He denies any recent medication changes.? He had some mild lightheadedness and dizziness.? He denied any chest pain pressure or syncopal event.? An echo was performed today which was read as the following 1. Complete two-dimensional, color flow and Doppler transthoracic echocardiogram is performed. ? 2. Left ventricular chamber dimension is normal. ? 3. Left ventricular systolic function is normal, estimated at 60-65%. ? 4. There is mildly increased left ventricular wall thickness. ? 5. The left ventricular diastolic function is grade I diastolic dysfunction. ? 6. Left atrial chamber dimension is moderately enlarged. ? 7. There is mild aortic valve stenosis with a peak velocity of 178 cm/s, mean gradient of 7 mmHg, and aortic valve area of 1.9 cm2. ? 8. There is no mitral valve regurgitation. ? 9. There is trace tricuspid valve regurgitation. ? 10. No pulmonary hypertension, estimated pulmonary arterial systolic pressure is 21 mmHg. Cardiology has seen the patient here and mid noted that the patient is awaiting transfer for EP evaluation.? Continue on monitoring manager.? Keep electrolytes optimized.? Awaiting transfer to [facility] however they have no beds at this time.? No anticoagulation for now.? The patient is being admitted to observation status on the date of service of 07/09/2022. 07/10/2022 interval history: Patient with PAF, PSVT and cardiomyopathy and symptomatic SVT unable to maintain was on amio but develop bradycardia, seen by machining and assembly supervisor recommended patient needs EP evaluation, waiting for a bed at [facility], patient remains clinically, and has no complaints of CP, palpitation or SOB, his and daughter are present in th
--- NOTE | 2022-07-10 19:23 | PC.NURSE ---
Report given to JACKIE Lopez @ 2116
--- NOTE | 2022-07-10 19:34 | PC.NURSE ---
This patient, Noé Duke, was transferred to [room 342 ] on 07/10/22 at 1935. Personal belongings sent with patient. Report given by the day shift nurse. Appropriate documentation sent with patient.
--- NOTE | 2022-07-10 19:49 | PC.NURSE ---
This patient, Noé uDke, was received from [[id number]] on 07/10/22 at 1949. Patient/family oriented to unit policies and routines
--- NOTE | 2022-07-10 21:01 | PC.NURSE ---
2049: CALLED TRAN[facility]ORT [facility]ENTER TO VERIFY ACCEPTING PHYSICIAN AND TRANSFER LOCATION. PATIENT ACCEPTED BY JAK POWELL MD. TO BE TRANSFERRED TO [facility]#[id number] 2099: CALLED [facility]PTING [facility] TO GIVE REPORT TO NEHA EMJIA. STATES NURSE UNAVAILABLE AWAIT CALL BACK.
--- NOTE | 2022-07-10 22:12 | PC.NURSE ---
2156: REPORT GIVEN TO NEHA MEJIA. ETA FOR [facility] [id number]
[2022-07-11] VITALS: PULSE 56
--- NOTE | 2022-07-27 15:18 | PM.TDS ---
Transfer Discharge Sum: Prov Provider Date of admission: 07/09/22 14:49 Primary care physician: PHYSICIAN NOT ON STAFF Admitting clinician: Karla Johnson MD Consults: 07/09/22 14:49 Consult to Physician Routine Comment: Consulting Provider: Ross Liu Reason for consultation: Paroxysmal SVT Has provider been notified: Yes DS: Admitting Diagnosis Discharge Date 07/11/22 Admitting Diagnosis proximal supraventricular tachycardia DS: Discharge Diagnosis Discharge Diagnosis (1) Paroxysmal SVT (supraventricular tachycardia): Code(s): I47.1 - Supraventricular tachycardia Status: Acute Assessment and Plan: -the patient initially was placed on amiodarone drip. Now he is off of the amiodarone drip. -the patient is waiting for transfer to [facility] for EP studies. However no beds are available at [facility] at this time. -cardiology to see the patient while he is awaiting placement. -currently and sinus bradycardia. 07/10/2022 interval history: Patient with PAF, PSVT and cardiomyopathy and symptomatic SVT unable to maintain was on amio but develop bradycardia, seen by fancy packer recommended patient needs EP evaluation, waiting for a bed at [facility], patient remains clinically, and has no complaints of CP, palpitation or SOB, his and daughter are present in the room. (2) Paroxysmal atrial fibrillation: Code(s): I48.0 - Paroxysmal atrial fibrillation Status: Acute Assessment and Plan: -currently in sinus bradycardia. -the patient is chronically on Eliquis. -metoprolol was continued but with parameters to hold if heart rate is less than 50. (3) Chronic anticoagulation: Code(s): Z79.01 - intermediate teacher (current) use of anticoagulants Status: Acute Assessment and Plan: -the patient is on Eliquis. (4) Congestive heart failure: Code(s): I50.9 - Heart failure, unspecified Status: Acute Assessment and Plan: -Entresto was restarted with parameters. -diastolic grade 1, see echo above -Lasix resumed as well. Plan Home medications were resumed while awaiting transfer. Transfer Discharge Sum: Med Medications Active and Home Medications: Home Medications apixaban 5 mg tablet (Eliquis) 5 mg PO BID 06/20/22 [History Confirmed 07/09/22] aspirin 81 mg tablet,delayed release (Adult Low Dose Aspirin) 81 mg PO DAILY 06/20/22 [History Confirmed 07/09/22] furosemide 20 mg tablet 20 mg PO BID 06/20/22 [History Confirmed 07/09/22] metoprolol succinate 25 mg tablet,extended release 24 hr 12.5 mg PO DAILY 06/20/22 [History Confirmed 07/09/22] sacubitril 24 mg-valsartan 26 mg tablet (Entresto) 1 tablet PO BID 06/20/22 [History Confirmed 07/09/22] meloxicam 15 mg tablet 7.5 mg PO BID 06/21/22 [History Confirmed 07/09/22] multivit,Ca,min-iron 8 mg-folic acid 200 mcg-lycopene 600 mcg tablet (Centrum Men) 1 tablet PO DAILY 06/21/22 [History Confirmed 07/09/22] Transfer Discharge Sum: Hosp Hospital Course Hospital course: Noé Duke is a 76 year old male Time Spent with Patient Time attestation: Total time spent providing and/or coordinating transfer services: Patient with PAF, PSVT and cardiomyopathy and symptomatic SVT unable to maintain was on amio but develop bradycardia, seen by fancy packer recommended patient needs EP evaluation, waiting for a bed at [facility], patient remains clinically, and has no complaints of CP, palpitation or SOB, his and daughter are present in the room.? Hide Spreader communicated with EP physician and patient was transferred to [facility] Exam Narrative: Patient is comfortable, NAD HEENT: eyes are clear and none icteric LUNGS:Normal respiratory effort ABD: not distended Lower extremities: no edema SKIN: nonjaundiced Neuro: grossly intact.
== END 2022-07-11 00:25 | disposition short-term general hospital (02) ==
LOC: ANHED 15:12 → ANHIMU 07-09 16:48 → ANH3MED 07-10 21:10
PROVIDERS: Nurse Practitioner; Admitting Provider Family Medicine; Emergency Provider Emergency Medicine; Visit Provider Family Medicine
DX: I47.1 Supraventricular tachycardia (principal); I48.0 Paroxysmal atrial fibrillation; I42.9 Cardiomyopathy, unspecified; I50.30 Unspecified diastolic (congestive) heart failure; R00.1 Bradycardia, unspecified; I95.9 Hypotension, unspecified; I08.0 Rheumatic disorders of both mitral and aortic valves; Z20.822 Contact with and (suspected) exposure to COVID-19; Z87.891 Personal history of nicotine dependence; Z79.01 Long term (current) use of anticoagulants; Z79.82 Long term (current) use of aspirin; Z79.899 Other long term (current) drug therapy; Z82.49 Family history of ischemic heart disease and other diseases of the circulatory system
CPT/HCPCS: 36415; 71045; 80048; 80053; 82728; 83605; 83690; 83735; 84100; 84443; 84484; 85025; 85055; 85610; 85730; 86140; 93005; 93306; 96361; 96365; 96366; 99285; A9270; C9803; G0378; J0282; J7030; U0003; U0005